=== PATIENT | male | born 1985 | race African-American/Black ===

== ENCOUNTER 2022-05-27 16:17 | Emergency (ER) | payer MEDICARE ==
[2022-05-27 18:24] VITALS: RESP 16
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
[2022-05-27 19:36] VITALS: BP 128/84; PULSE 80; TEMP 98.1
== END 2022-05-27 20:22 | disposition home or self-care (01) ==
LOC: EC 16:17
DX: R51.9 Headache, unspecified (principal); F12.90 Cannabis use, unspecified, uncomplicated
CPT/HCPCS: 70450; 99283

== ENCOUNTER → 2022-07-30 | Outpatient (CLI) | payer MEDICARE | END | disposition home or self-care (01) | LOC: LABWHC1 12:00 | PROVIDERS: ATTEND Urology | DX: E29.1 Testicular hypofunction (principal) | CPT/HCPCS: 36415; 84403 ==

== ENCOUNTER 2022-08-25 21:21 | Emergency (ER) | payer MEDICARE, OTHER ==
[2022-08-25 21:29] VITALS: RESP 18
--- NOTE | 2022-08-25 22:34 | XR ---
EXAMINATION TYPE: XR chest 2V DATE OF EXAM: 08/25/2022 COMPARISON: None INDICATION: Cough short of breath TECHNIQUE: Frontal and lateral views of the chest are obtained. FINDINGS: The heart size is normal. The pulmonary vasculature is normal. The lungs are clear. IMPRESSION: 1. No acute pulmonary process.
--- NOTE | 2022-08-25 23:43 | ED ---
General Adult HPI - General Chief complaint: Shortness of Breath Stated complaint: SOB Time Seen by Provider: 08/25/22 23:22 Source: patient, RN notes reviewed, old records reviewed Mode of arrival: ambulatory - History of Present Illness Initial comments: This is a nontoxic-appearing 37-year-old male who presents with complaints of cough, sore throat and shortness of breath on and off for one week. States that he thinks it's related to the poor air quality. He has been sleeping with his windows open because he doesn't have air conditioning. He has had increased yellow colored mucus production. Denies any fevers. No medical history. -: week(s) (1) Radiation: non-radiation Severity scale (1-10): 0 Consistency: intermittent Associated Symptoms: cough, shortness of breath, other (sore throat) - Related Data Allergies Allergy/AdvReac Type Severity Reaction Status Date / Time No Known Allergies Allergy Verified 08/25/22 21:29 Review of Systems ROS Statement: Those systems with pertinent positive or pertinent negative responses have been documented in the HPI. ROS Other: All systems not noted in ROS Statement are negative. Past Medical History Past Medical History: No Reported History Past Surgical History: No Surgical Hx Reported Past Psychological History: No Psychological Hx Reported Smoking Status: Never smoker Past Alcohol Use History: None Reported Past Drug Use History: Marijuana Course Vital Signs 08/25/22 08/25/22 08/25/22 21:26 23:44 23:51 Temperature 98.5 F 97.4 F L Pulse Rate 65 55 L Respiratory 18 18 18 Rate Blood Pressure 138/83 117/92 O2 Sat by Pulse 97 97 Oximetry Medical Decision Making - Medical Decision Making Was pt. sent in by a medical professional or institution (, PA, SINK CUTTER, urgent care, hospital, or half-way...) When possible be specific @ -No Did you speak to anyone other than the patient for history (EMS, parent, family, police, friend...)? What history was obtained from this source @ -No Did you review nursing and triage notes (agree or disagree)? Why? @ -I reviewed and agree with nursing and triage notes Were old charts reviewed (outside hosp., previous admission, EMS record, old EKG, old radiological studies, urgent care reports/EKG's, half-way records)? Report findings @ -No old charts were reviewed Differential Diagnosis (chest pain, altered mental status, abdominal pain women, abdominal pain men, vaginal bleeding, weakness, fever, dyspnea, syncope, headache, dizziness, GI bleed, back pain, seizure, CVA, palpatations, mental health, musculoskeletal)? @ -URI, strep pharyngitis, asthma, seasonal ALLERGIES this is not an all inclusive list EKG interpreted by me (3pts min.). @ -As above X-rays interpreted by me (1pt min.). @ - Chest x-ray interpreted by me shows no evidence of focal consolidation. Cardiac silhouette within normal size. Trachea midline. CT interpreted by me (1pt min.). @ -None done U/S interpreted by me (1pt. min.). @ -None done What testing was considered but not performed or refused? (CT, X-rays, U/S, labs)? Why? @ -Strep testing was considered however centor criteria low What meds were considered but not given or refused? Why? @ -Albuterol prescription was offered and patient declined Did you discuss the management of the patient with other professionals (professionals i.e. , PA, SINK CUTTER, lab, RT, psych nurse, geriatric social worker, silo tender, teacher, chief security officer, family independence case manager)? Give summary @ -No Was smoking cessation discussed for >3mins.? @ -No Was critical care preformed (if so, how long)? @ -No Were there social determinants of health that impacted care today? How? (Homelessness, low income, unemployed, alcoholism, drug addiction, transportation, low edu. Level, literacy, decrease access to med. care, long term, rehab)? @ -No Was there de-escalation of care discussed even if they declined (Discuss DNR or withdrawal of care, Hospice)? DNR status @ -No What co-morbidities impacted this encounter? (DM, HTN, Smoking, COPD, CAD, Cancer, CVA, ARF, Chemo, Hep., AIDS, mental health diagnosis, sleep apnea, morbid obesity)? @ -None Was patient admitted / discharged? Hospital course, mention meds given and route, prescriptions, significant lab abnormalities, going to OR and other pertinent info. @ -Discharged This is a nontoxic-appearing 37-year-old male who presents with complaints of cough, sore throat and shortness of breath on and off for one week. States that he thinks it's related to the poor air quality. He has been sleeping with his windows open because he doesn't have air conditioning. He has had increased ye llow colored mucus production. Denies any fevers. No medical history. Denies any chest pain. No history of asthma. States he is a nonsmoker. Vital signs are stable, lung sounds are clear to auscultation, oxygen saturation 97%. Chest x-ray interpreted by me shows no evidence of focal consolidation. Cardiac silhouette within normal size. Trachea midline. Radiologist interpretation no acute pulmonary process. Patient was offered an albuterol inhaler for intermittent shortness of breath and declined. Directed to follow up with his primary care doctor as needed. Increase his fluid intake. Use nasal saline and Mucinex [id number]. Return to the emergency room with any new or concerning symptoms concerning symptoms. He is agreeable to this plan of care. Case discussed with Dr. Astorga. Undiagnosed new problem with uncertain prognosis? @ -No Drug Therapy requiring intensive monitoring for toxicity (Heparin, Nitro, I nsulin, Cardizem)? @ -No Were any procedures done? @ -No Diagnosis/symptom? @ -URI Acute, or Chronic, or Acute on Chronic? @ -Acute Uncomplicated (without systemic symptoms) or Complicated (systemic symptoms)? @ -Uncomplicated Side effects of treatment? @ -No Exacerbation, Progression, or Severe Exacerbation? @ -No Poses a threat to life or bodily function? How? (Chest pain, [place], [place], pneumonia, PE, COPD, DKA, ARF, appy, cholecystitis, CVA, Diverticulitis, Homicidal, Suicidal, threat to staff... and all critical care pts) @ -No Disposition Clinical Impression: URI with cough and congestion Disposition: HOME SELF-CARE Condition: Good Instructions (If sedation given, give patient instructions): Upper Respiratory Infection (ED) Additional Instructions: Increase your fluid intake. Use Mucinex as needed to thin mucous. Avoid being outside for extended periods of time when poor air quality alerts are noted. Follow-up with the primary care doctor next week. Return to the emergency room with any new or concerning symptoms. Is patient prescribed a controlled substance at d/c from ED?: No Referrals: Rosario Dotson MD [Primary Care Provider] - 1-2 days Time of Disposition: 23:42
[2022-08-25 23:50] VITALS: BP 117/92; PULSE 55; TEMP 97.4
== END 2022-08-26 00:07 | disposition home or self-care (01) ==
LOC: EC 21:21
DX: J06.9 Acute upper respiratory infection, unspecified (principal); F12.90 Cannabis use, unspecified, uncomplicated
CPT/HCPCS: 71046; 99284

== ENCOUNTER → 2022-09-10 | Outpatient (CLI) | payer MEDICARE, OTHER ==
--- NOTE | 2022-09-10 10:41 | XR ---
EXAMINATION TYPE: XR thoracic spine complete DATE OF EXAM: 09/10/2022 COMPARISON: 08/25/2022 HISTORY: Pain TECHNIQUE: 3 views submitted FINDINGS: Alignment is anatomic. There is minimal loss of vertebral body height of a mid thoracic segment whic h appears chronic.. Vertebral body height and disc interspaces are maintained. Mild hypertrophic sp urring at multiple levels. IMPRESSION: 1. No acute abnormality. Mild hypertrophic changes. There is a very minimal loss of superior endplat e height which appears chronic of a mid to upper thoracic segment.
== END | disposition home or self-care (01) ==
LOC: RADXRMAIN 10:11
PROVIDERS: ATTEND Family Medicine
DX: M89.38 Hypertrophy of bone, other site (principal); M43.9 Deforming dorsopathy, unspecified
CPT/HCPCS: 72072

== ENCOUNTER 2022-09-26 15:30 | Emergency (ER) | payer MEDICARE, OTHER ==
[2022-09-26 15:51] VITALS: RESP 18
[2022-09-26] MEDS ORDERED: AZITHROMYCIN 500 MG TAB PO STA (16:25)
[2022-09-26] MEDS ORDERED: metroNIDAZOLE 500 MG TAB PO STA (16:25)
[2022-09-26] MEDS ORDERED: cefTRIAXone 250 MG VIAL IM STA (16:25)
--- NOTE | 2022-09-26 16:28 | ED ---
General Adult HPI - General Chief complaint: Recheck/Abnormal Lab/Rx Stated complaint: std testing Time Seen by Provider: 09/26/22 16:09 Source: patient Mode of arrival: ambulatory - History of Present Illness Initial comments: 37-year-old male presenting for STD testing. He states that 7 days ago after being sexually active he developed an itch to the groin. He denies any dis charge, dysuria, hematuria, rash, testicular pain or swelling. He is requesting testing and treatment. - Related Data Allergies Allergy/AdvReac Type Severity Reaction Status Date / Time No Known Allergies Allergy Verified 09/26/22 15:52 Review of Systems ROS Statement: Those systems with pertinent positive or pertinent negative responses have been documented in the HPI. ROS Other: All systems not noted in ROS Statement are negative. Past Medical History Past Medical History: No Reported History History of Any Multi-Drug Resistant Organisms: None Reported Past Surgical History: No Surgical Hx Reported Additional Past Surgical History / Comment(s): varicose veins sx Past Psychological History: No Psychological Hx Reported Smoking Status: Never smoker Past Alcohol Use History: None Reported Past Drug Use History: None Reported General Exam Limitations: no limitations General appearance: alert, in no apparent distress Head exam: Present: atraumatic, normocephalic, normal inspection Eye exam: Present: normal appearance, EOMI Neck exam: Present: normal inspection, full ROM Respiratory exam: Absent: respiratory distress Neurological exam: Present: alert, oriented X3, CN II-XII intact Psychiatric exam: Present: normal affect, normal mood Skin exam: Present: warm, dry, intact, normal color. Absent: rash Course Vital Signs 09/26/22 15:47 Temperature 98.5 F Pulse Rate 71 Respiratory 18 Rate Blood Pressure 112/69 O2 Sat by Pulse 99 Oximetry Medical Decision Making - Medical Decision Making Was pt. sent in by a medical professional or institution (, PA, PRINCIPAL ELECTRICAL ENGINEER, urgent care, hospital, or long-term...) When possible be specific @ -No Did you speak to anyone other than the patient for history (EMS, parent, family, police, friend...)? What history was obtained from this source @ -No Did you review nursing and triage notes (agree or disagree)? Why? @ -I reviewed and agree with nursing and triage notes Were old charts reviewed (outside hosp., previous admission, EMS record, old EKG, old radiological studies, urgent care reports/EKG's, long-term records)? Report findings @ -No old charts were reviewed Differential Diagnosis (chest pain, altered mental status, abdominal pain women, abdominal pain men, vaginal bleeding, weakness, fever, dyspnea, syncope, headache, dizziness, GI bleed, back pain, seizure, CVA, palpatations, mental health, musculoskeletal)? @ -not applicable EKG interpreted by me (3pts min.). @ -As above X-rays interpreted by me (1pt min.). @ -None done CT interpreted by me (1pt min.). @ -None done U/S interpreted by me (1pt. min.). @ -None done What testing was considered but not performed or refused? (CT, X-rays, U/S, labs)? Why? @ -None What meds were considered but not given or refused? Why? @ -None Did you discuss the management of the patient with other professionals (professionals i.e. , PA, PRINCIPAL ELECTRICAL ENGINEER, lab, RT, psych nurse, social contact worker, county surveyor, teacher, railroad police officer, mattress spring encaser)? Give summary @ -No Was smoking cessation discussed for >3mins.? @ -No Was critical care preformed (if so, how long)? @ -No Were there social determinants of health that impacted care today? How? (Homelessness, low income, unemployed, alcoholism, drug addiction, transportation, low edu. Level, literacy, decrease access to med. care, correction, rehab)? @ -No Was there de-escalation of care discussed even if they declined (Discuss DNR or withdrawal of care, Hospice)? DNR status @ -No What co-morbidities impacted this encounter? (DM, HTN, Smoking, COPD, CAD, Cancer, CVA, ARF, Chemo, Hep., AIDS, mental health diagnosis, sleep apnea, morbid obesity)? @ -None Was patient admitted / discharged? Hospital course, mention meds given and route, prescriptions, significant lab abnormalities, going to OR and other pertinent info. @ -37-year-old male presenting requesting STD testing. States that he has been having an itch to his groin and no other symptoms. He is requesting full panel STD testing. He would like to receive treatment today. He was receiving Rocephin, azithromycin, and metronidazole. Testing sent home patient will be contacted with results. Follow-up with PCP. Report back to ER with any new or worsening symptoms. Discussed return parameters and answered all questions. Patient conveyed verbal understanding and agreed to the plan. I discussed this case in detail with my attending Dr. Enrique Undiagnosed new problem with uncertain prognosis? @ -No Drug Therapy requiring intensive monitoring for toxicity (Heparin, Nitro, Insulin, Cardizem)? @ -No Were any procedures done? @ -No Diagnosis/symptom? @ -Encounter for STI screening Acute, or Chronic, or Acute on Chronic? @ -Acute Uncomplicated (without systemic symptoms) or Complicated (systemic symptoms)? @ -Uncomplicated Side effects of treatment? @ -No Exacerbation, Progression, or Severe Exacerbation? @ -No Poses a threat to life or bodily function? How? (Chest pain, [place], [place], pneumonia, PE, COPD, DKA, ARF, appy, cholecystitis, CVA, Diverticulitis, Homicidal, Suicidal, threat to staff... and all critical care pts) @ -No Disposition Clinical Impression: Encounter for assessment of STD exposure Disposition: HOME SELF-CARE Condition: Good Instructions (If sedation given, give patient instructions): Sexually Transmitted Diseases (ED), Male Condom Use (ED), Safe Sex Practices (ED) Additional Instructions: Follow-up with PCP. Report back to ER with any new or worsening symptoms. Is patient prescribed a controlled substance at d/c from ED?: No Referrals: Rosario Dotson MD [Primary Care Provider] - 1-2 days Time of Disposition: 16:28
[2022-09-26 18:21] VITALS: BP 191/82; PULSE 60; TEMP 98.6
[2022-09-26 18:41] LABS: Appearance,Urine Clear (Clear); Bilirubin,Urine Negative (Negative); Blood,Urine Negative (Negative); Color,Urine Yellow; Glucose,Urine (UA) Negative (Negative); Ketones,Urine Negative (Negative); Leukocyte Esterase,Urine Negative (Negative); Nitrite,Urine Negative (Negative); PH, Urine 5.5 (5.0-8.0); Protein,Urine Negative (Negative); Specific Gravity,Urine 1.024 (1.001-1.035); Urobilinogen,Urine <2.0 mg/dL (<2.0)
[2022-09-27 12:35] LABS: HIV 2 AB Non-Reactive (Non-Reactive); HIV AB P24 Non-Reactive (Non-Reactive); HIV P24 AG Non-Reactive (Non-Reactive)
[2022-09-28 04:50] LABS: Herpes simplex I and/or II IgM 0.44 INDEX (<=0.90); Herpes simplex IgG I Ab 32.3 (< or = 0.90); Herpes simplex IgG II Ab 0.43 (< or = 0.90)
== END 2022-09-26 18:21 | disposition home or self-care (01) ==
LOC: EC 15:30
DX: Z11.3 Encounter for screening for infections with a predominantly sexual mode of transmission (principal)
CPT/HCPCS: 36415; 86696; 86694; 86695; 81003; 87491; 87591; 86780; 87070; 87390; 99283; 96372; J0696

== ENCOUNTER 2022-10-02 15:55 | Emergency (ER) | payer MEDICARE, OTHER ==
[2022-10-02 16:03] VITALS: BP 123/79; PULSE 66; RESP 18; TEMP 97.7
[2022-10-02] MEDS ORDERED: CLINDAMYCIN 150 MG CAP PO STA (16:28)
--- NOTE | 2022-10-02 16:30 | ED ---
General Adult HPI - General Chief complaint: Extremity Injury, Upper Stated complaint: REACTION TO ANTIBIOTICS Time Seen by Provider: 10/02/22 16:16 Source: patient Mode of arrival: ambulatory Limitations: no limitations - History of Present Illness Initial comments: Patient is 37-year-old male who presents to the emergency department for left middle finger swelling. Patient reports swelling in his finger of the past couple days states he was draining pus out of it today. He does report clipping his nails earlier this week. Denies fever, chills, nausea, vomiting. Patient feels that his may be a reaction to an antibiotic injection he got last week. - Related Data Previous Rx's Medication Instructions Recorded Clindamycin [Cleocin] 450 mg PO Q8H #45 capsule 10/02/22 Allergies Allergy/AdvReac Type Severity Reaction Status Date / Time No Known Allergies Allergy Verified 10/02/22 16:03 Review of Systems ROS Statement: Those systems with pertinent positive or pertinent negative responses have been documented in the HPI. ROS Other: All systems not noted in ROS Statement are negative. Past Medical History Past Medical History: No Reported History History of Any Multi-Drug Resistant Organisms: None Reported Past Surgical History: No Surgical Hx Reported Additional Past Surgical History / Comment(s): varicose veins sx Past Psychological History: No Psychological Hx Reported Smoking Status: Never smoker Past Alcohol Use History: None Reported Past Drug Use History: None Reported General Exam Limitations: no limitations General appearance: alert Cardiovascular Exam: Present: regular rate, normal rhythm, normal heart sounds. Absent: systolic murmur, diastolic murmur, rubs, gallop, clicks GI/Abdominal exam: Present: soft, normal bowel sounds. Absent: distended, tenderness, guarding, rebound, rigid Extremities exam: Present: full ROM, normal capillary refill, other (hangnail left middle finger minimal erythema no swelling or drainage. Full range of motion. Neurovascularly intact) Neurological exam: Present: alert Psychiatric exam: Present: normal affect, normal mood Skin exam: Present: warm, dry, intact, normal color. Absent: rash Course Vital Signs 10/02/22 16:00 Temperature 97.7 F Pulse Rate 66 Respiratory 18 Rate Blood Pressure 123/79 O2 Sat by Pulse 97 Oximetry Medical Decision Making - Medical Decision Making Was pt. sent in by a medical professional or institution (, PA, RAIL MAINTENANCE WORKER, urgent care, hospital, or [place] [facility]...) When possible be specific @ -No Did you speak to anyone other than the patient for history (EMS, parent, family, police, friend...)? What history was obtained from this source @ -No Did you review nursing and triage notes (agree or disagree)? Why? @ -I reviewed and agree with nursing and triage notes Were old charts reviewed (outside hosp., previous admission, EMS record, old EKG, old radiological studies, urgent care reports/EKG's, [place] [facility] records)? Report findings @ -No old charts were reviewed Differential Diagnosis (chest pain, altered mental status, abdominal pain women, abdominal pain men, vaginal bleeding, weakness, fever, dyspnea, syncope, headache, dizziness, GI bleed, back pain, seizure, CVA, palpatations, mental health)? @ -abscess, cellulitis and paronychia. This list is not meant to be all- inclusive EKG interpreted by me (3pts min.). @ -As above X-rays interpreted by me (1pt min.). @ -None done CT interpreted by me (1pt min.). @ -None done U/S interpreted by me (1pt. min.). @ -None done What testing was considered but not performed or refused? (CT, X-rays, U/S, labs)? Why? @ -None What meds were considered but not given or refused? Why? @ -[None] Did you discuss the management of the patient with other professionals (professionals i.e. , PA, RAIL MAINTENANCE WORKER, lab, RT, psych nurse, social contact worker, hydrological technical officer, teacher, medical officer, shoe caser)? Give summary @ -[No] Was smoking cessation discussed for >3mins.? @ -[No] Was critical care preformed (if so, how long)? @ -[No] Were there social determinants of health that impacted care today? How? (Homelessness, low income, unemployed, alcoholism, drug addiction, tra nsportation, low edu. Level, literacy, decrease access to med. care, [facility], rehab)? @ -[No] Was there de-escalation of care discussed even if they declined (Discuss DNR or withdrawal of care, Hospice)? DNR status @ -[No] What co-morbidities impacted this encounter? (DM, HTN, Smoking, COPD, CAD, Cancer, CVA, ARF, Chemo, Hep., AIDS, mental health diagnosis, sleep apnea, morbid obesity)? @ -[None] Was patient admitted / discharged? Hospital course, mention meds given and route, prescriptions, significant lab abnormalities, going to OR and other pertinent info. @ -Patient has concern with swelling and drainage in left middle finger. This is not evident on physical exam however patient is adamant he has had drainage out of the finger all day. Patient does have a hangnail with minimal erythema will place patient on clindamycin for paronychia. Patient to follow-up with primary care provider Undiagnosed new problem with uncertain prognosis? @ -[No] Drug Therapy requiring intensive monitoring for toxicity (Heparin, Nitro, Insulin, Cardizem)? @ -[No] Were any procedures done? @ -[No] Diagnosis/symptom? @ -paronychia Acute, or Chronic, or Acute on Chronic? @ acute Uncomplicated (without systemic symptoms) or Complicated (systemic symptoms)? @ -uncomplicated Side effects of treatment? @ -[No] Exacerbation, Progression, or Severe Exacerbation? @ -[No] Poses a threat to life or bodily function? How? (Chest pain, [place], [place], pneumonia, PE, COPD, DKA, ARF, appy, cholecystitis, CVA, Diverticulitis, Homicidal, Suicidal, threat to staff... and all critical care pts) @ -No Dr. Osullivan is my attending Disposition Clinical Impression: Paronychia Disposition: HOME SELF-CARE Condition: Good Instructions (If sedation given, give patient instructions): Paronychia (ED) Additional Instructions: Take antibiotic as directed. This medication may cause diarrhea. Apply warm compress. Follow-up with primary care provider in one to 2 days. Return to the emergency department if you experience new, concerning, or worsening symptoms Prescriptions: Clindamycin [Cleocin] 450 mg PO Q8H #45 capsule Is patient prescribed a controlled substance at d/c from ED?: No Referrals: Rosario Dotson MD [Primary Care Provider] - 1-2 days
== END 2022-10-02 16:52 | disposition home or self-care (01) ==
LOC: EC 15:55
DX: L03.012 Cellulitis of left finger (principal)
CPT/HCPCS: 99283

== ENCOUNTER 2022-12-04 13:14 | Emergency (ER) | payer MEDICARE, OTHER ==
[2022-12-04 13:30] VITALS: BP 130/80; PULSE 70; RESP 20; TEMP 97.6
--- NOTE | 2022-12-04 14:41 | ED ---
General Adult HPI - General Chief complaint: ENT Stated complaint: ear infection Time Seen by Provider: 12/04/22 14:20 Source: patient, RN notes reviewed, old records reviewed Mode of arrival: ambulatory Limitations: no limitations - History of Present Illness Initial comments: Patient is a 37-year-old male who presents emergency Department with itching to bilateral ear canals. Has been cleaning them out more with eardrops as well as Q-tips. States he seemed irritated, itchy, but no hieu pain. No discharge. No difficulty with hearing. No sore throat. No fevers. No rhinorrhea or congestion. No other acute complaints at this time. Presents for further evaluation at this time. - Related Data Previous Rx's Medication Instructions Recorded Clindamycin [Cleocin] 450 mg PO Q8H #45 capsule 10/02/22 Ofloxacin 0.3% Otic Soln [Floxin 5 drops BOTH EARS BID #10 ml 12/04/22 0.3% Otic Soln] Allergies Allergy/AdvReac Type Severity Reaction Status Date / Time No Known Allergies Allergy Verified 10/02/22 16:03 Review of Systems ROS Statement: Those systems with pertinent positive or pertinent negative responses have been documented in the HPI. Review of Systems: CONST: Denies fever EYES: Denies blurry vision ENT: Endorses ear pain C/V: Denies Chest pain RESP: Denies shortness of breath GI: Denies abdominal pain : Denies dysuria SKIN: Denies rash. MSK: Denies joint pain. NEURO: Denies headache ROS Other: All systems not noted in ROS Statement are negative. Past Medical History Past Medical History: No Reported History History of Any Multi-Drug Resistant Organisms: None Reported Past Surgical History: No Surgical Hx Reported Additional Past Surgical History / Comment(s): varicose veins sx Past Psychological History: No Psychological Hx Reported Smoking Status: Never smoker Past Alcohol Use History: None Reported Past Drug Use History: None Reported General Exam - General Exam Comments Initial Comments: General: Appears in no acute distress. HEAD: Normal with no signs of head trauma. EYES: EOMI. ENT: Hearing grossly intact. Bilateral tympanic membranes within acceptable limits. Bilateral ear canals appear erythematous and irritated. No obvious drainage. Posterior oropharynx within acceptable limits. RESPIRATORY: No respiratory distress. C/V: Regular rate and rhythm. ABD: Abdomen is nondistended. EXT: No obvious deformity. SKIN: No rashes or lesions observed on exposed skin. NEURO: Alert and oriented. Limitations: no limitations Course Vital Signs 12/04/22 13:18 Temperature 97.6 F Pulse Rate 70 Respiratory 20 Rate Blood Pressure 130/80 O2 Sat by Pulse 98 Oximetry Medical Decision Making - Medical Decision Making Was pt. sent in by a medical professional or institution ([facility], SLIVER HANDLER, urgent care, hospital, or retirement...) When possible be specific @ -No Did you speak to anyone other than the patient for history (EMS, parent, family, police, friend...)? What history was obtained from this source @ -No Did you review nursing and triage notes (agree or disagree)? Why? @ -I reviewed and agree with nursing and triage notes Were old charts reviewed (outside hosp., previous admission, EMS record, old EKG, old radiological studies, urgent care reports/EKG's, retirement records)? Report findings @ -No old charts were reviewed Differential Diagnosis (chest pain, altered mental status, abdominal pain women, abdominal pain men, vaginal bleeding, weakness, fever, dyspnea, syncope, headache, dizziness, GI bleed, back pain, seizure, CVA, palpatations, mental health, musculoskeletal)? @ -Otitis media, otitis externa, tympanic membrane rupture, ear canal irritation. This list is not all-inclusive. EKG interpreted by me (3pts min.). @ -None done X-rays interpreted by me (1pt min.). @ -None done CT interpreted by me (1pt min.). @ -None done U/S interpreted by me (1pt. min.). @ -None done What testing was considered but not performed or refused? (CT, X-rays, U/S, labs)? Why? @ -None What meds were considered but not given or refused? Why? @ -None Did you discuss the management of the patient with other professionals (professionals i.e. [facility], SLIVER HANDLER, lab, RT, psych nurse, renal social worker, weekend anchor, teacher, logistics supply officer, case consultant)? Give summary @ -No Was smoking cessation discussed for >3mins.? @ -No Was critical care preformed (if so, how long)? @ -No Were there social determinants of health that impacted care today? How? (Homelessness, low income, unemployed, alcoholism, drug addiction, transportation, low edu. Level, literacy, decrease access to med. care, intermediate, rehab)? @ -No Was there de-escalation of care discussed even if they declined (Discuss DNR or withdrawal of care, Hospice)? DNR status @ -No What co-morbidities impacted this encounter? (DM, HTN, Smoking, COPD, CAD, Cancer, CVA, ARF, Chemo, Hep., AIDS, mental health diagnosis, sleep apnea, morbid obesity)? @ -None Was patient admitted / discharged? Hospital course, mention meds given and route, prescriptions, significant lab abnormalities, going to OR and other pertinent info. @ -Based on the patient's presentation and physical exam, I'm concerned for auditory canal irritation. No evidence of otitis media or otitis externa at this time. Exam otherwise unremarkable. However I did discuss with him, that we will empirically treat him for otitis externa with otic drops. He was in agreement with this plan. Recommended he stop using Q-tips and attempt not to insert anything in his ear canal until they feel improved. He was in agreement this plan. Strict return precautions discussed. Discharge at this time. He'll be given ENT follow-up. I will provide the patient with a prescription for ofloxacin otic drops. I instructed the patient to follow up with their PCP in the next 1-3 days. I explained that the patient should return to the emergency department if they experience any worsening symptoms. Strict return precautions were discussed with the patient. The patient expressed understanding of these instructions. I answered all questions that the patient had. The patient was discharged home in good condition with their prescriptions and follow up information. Undiagnosed new problem with uncertain prognosis? @ -No Drug Therapy requiring intensive monitoring for toxicity (Heparin, Nitro, Insulin, Cardizem)? @ -No Were any procedures done? @ -No Diagnosis/symptom? @ -Irritation of the external auditory canal Acute, or Chronic, or Acute on Chronic? @ -Acute Uncomplicated (without systemic symptoms) or Complicated (systemic symptoms)? @ -Uncomplicated Side effects of treatment? @ -No Exacerbation, Progression, or Severe Exacerbation? @ -No Poses a threat to life or bodily function? How? (Chest pain, [place], [place], pneumonia, PE, COPD, DKA, ARF, appy, cholecystitis, CVA, Diverticulitis, Homicidal, Suicidal, threat to staff... and all critical care pts) @ -No Disposition Clinical Impression: Irritation of external auditory canal Disposition: HOME SELF-CARE Condition: Good Instructions (If sedation given, give patient instructions): Earache (ED) Prescriptions: Ofloxacin 0.3% Otic Soln [Floxin 0.3% Otic Soln] 5 drops BOTH EARS BID #10 ml Is patient prescribed a controlled substance at d/c from ED?: No Referrals: Rosario Dotson MD [Primary Care Provider] - 1-2 days Luis Felipe Warren MD [STAFF PHYSICIAN] - 1-2 days Time of Disposition: 14:40
== END 2022-12-04 14:46 | disposition home or self-care (01) ==
LOC: EC 13:14
DX: H61.893 Other specified disorders of external ear, bilateral (principal)
CPT/HCPCS: 99283

== ENCOUNTER 2024-08-18 22:31 | Emergency (ER) | payer MEDICARE, OTHER ==
[2024-08-18 22:49] VITALS: BP 120/72; PULSE 77; RESP 16; TEMP 98.3
--- NOTE | 2024-08-18 22:52 | ED ---
Male Urogenital HPI - General Chief complaint: Urogenital Stated complaint: urogential congestion Time Seen by Provider: 08/18/24 22:50 Source: patient, RN notes reviewed, old records reviewed Mode of arrival: ambulatory Limitations: no limitations - History of Present Illness Initial comments: This is a 39-year-old male to the ER for evaluation patient presents today requesting STI testing. Patient states he has multiple high risk exposures for STD STI, HIV HSV with dysuria. Patient has had high risk exposure in the past with negative STI testing MD Complaint: dysuria, other (Fevers chills weakness) -: days(s) Location: penis Radiation: none Severity: mild Severity scale (1-10): 0 Quality: aching Consistency: constant Improves with: none Worsens with: none Reports: denies other symptoms - Related Data Previous Rx's Medication Instructions Recorded Clindamycin [Cleocin] 450 mg PO Q8H #45 capsule 10/02/22 Ofloxacin 0.3% Otic Soln [Floxin 5 drops BOTH EARS BID #10 ml 12/04/22 0.3% Otic Soln] Allergies Allergy/AdvReac Type Severity Reaction Status Date / Time No Known Allergies Allergy Verified 08/18/24 22:46 Review of Systems ROS Statement: Those systems with pertinent positive or pertinent negative responses have been documented in the HPI. ROS Other: All systems not noted in ROS Statement are negative. Past Medical History Past Medical History: No Reported History History of Any Multi-Drug Resistant Organisms: None Reported Past Surgical History: No Surgical Hx Reported Additional Past Surgical History / Comment(s): varicose veins sx Past Psychological History: No Psychological Hx Reported Smoking Status: Never smoker Past Alcohol Use History: None Reported Past Drug Use History: None Reported General Exam Limitations: no limitations General appearance: alert, in no apparent distress Head exam: Present: atraumatic, normocephalic, normal inspection Eye exam: Present: normal appearance, PERRL, EOMI. Absent: scleral icterus, conjunctival injection, periorbital swelling ENT exam: Present: normal exam, mucous membranes moist Neck exam: Present: normal inspection. Absent: tenderness, meningismus, lymphadenopathy Respiratory exam: Present: normal lung sounds bilaterally. Absent: respiratory distress, wheezes, rales, rhonchi, stridor Cardiovascular Exam: Present: regular rate, normal rhythm, normal heart sounds. Absent: systolic murmur, diastolic murmur, rubs, gallop, clicks GI/Abdominal exam: Present: soft, normal bowel sounds. Absent: distended, tenderness, guarding, rebound, rigid Extremities exam: Present: normal inspection, full ROM, normal capillary refill. Absent: tenderness, pedal edema, joint swelling, calf tenderness Back exam: Present: normal inspection Neurological exam: Present: alert, oriented X3, CN II-XII intact Psychiatric exam: Present: normal affect, normal mood Skin exam: Present: warm, dry, intact, normal color. Absent: rash Course Vital Signs 08/18/24 22:46 Temperature 98.3 F Pulse Rate 77 Respiratory 16 Rate Blood Pressure 120/72 O2 Sat by Pulse 99 Oximetry - Reevaluation(s) Reevaluation #1: 08/18/24 23:21 Medical records reviewed Reevaluation #2: 08/18/24 23:21 Patient is relatively asymptomatic, concern and anxiety Reevaluation #3: 08/18/24 23:21 Patient informed of results questions answered Reevaluation #4: Was pt. sent in by a medical professional or institution (, PA, PLATER APPRENTICE, urgent care, hospital, or custodial...) When possible be specific @ -no Did you speak to anyone other than the patient for history (EMS, parent, family, police, friend...)? What history was obtained from this source @ -no Did you review nursing and triage notes (agree or disagree)? Why? @ -agree Are old charts reviewed (outside hosp., previous admission, EMS record, old EKG, old radiological studies, urgent care reports/EKG's, custodial records)? Report findings @ -yes Differential Diagnosis (chest pain, altered mental status, abdominal pain women, abdominal pain men, vaginal bleeding, weakness, fever, dyspnea, syncope, headache, dizziness, GI bleed, back pain, seizure, CVA, palpatations, mental health, musculoskeletal)? @ -prior EKG interpreted by me (3pts min.). @ -yes X-rays interpreted by me (1pt min.). @ -yes negative for acute disease CT interpreted by me (1pt min.). @ -no U/S interpreted by me (1pt. min.). @ -no What testing was considered but not performed or refused? (CT, X-rays, U/S, labs)? Why? @ -none What meds were considered but not given or refused? Why? @ -none Did you discuss the management of the patient with other professionals (professionals i.e. , PA, PLATER APPRENTICE, lab, RT, psych nurse, web content & social media manager, grades 1 6 tutor, teacher, information security officer, shelter case manager)? Give summary @ -no Was smoking cessation discussed for >3mins.? @ -no Was critical care preformed (if so, how long)? @ -no Were there social determinants of health that impacted care today? How? (Homelessness, low income, unemployed, alcoholism, drug addiction, transportation, low edu. Level, literacy, decrease access to med. care, detention, rehab)? @ -none Was there de-escalation of care discussed even if they declined (Discuss DNR or withdrawal of care, Hospice)? DNR status @ -no What co-morbidities impacted this encounter? (DM, HTN, Smoking, COPD, CAD, Cancer, CVA, ARF, Chemo, Hep., AIDS, mental health diagnosis, sleep apnea, morbid obesity)? @ -none Was patient admitted / discharged? Hospital course, mention meds given and route, prescriptions, significant lab abnormalities, going to OR and other pertinent info. @ - Undiagnosed new problem with uncertain prognosis? @ -no Drug Therapy requiring intensive monitoring for toxicity (Heparin, Nitro, Insulin, Cardizem)? @ -no Were any procedures done? @ -no Diagnosis/symptom? @ - Acute, or Chronic, or Acute on Chronic? @ -Acute Uncomplicated (without systemic symptoms) or Complicated (systemic symptoms)? @ -Complicated Side effects of treatment? @ -no Exacerbation, Progression, or Severe Exacerbation? @ -exacerbation Poses a threat to life or bodily function? How? (Chest pain, [place], [place], pneumonia, PE, COPD, DKA, ARF, appy, cholecystitis, CVA, Diverticulitis, Homicidal, Suicidal, threat to staff... and all critical care pts) @ -yes Medical Decision Making - Medical Decision Making 39 male to ER for STI STD testing, patient believes he does have however sexual activity with exposure. Disposition Clinical Impression: Possible exposure to STI Disposition: HOME SELF-CARE Instructions (If sedation given, give patient instructions): Sexually Transmitted Diseases (ED), Safe Sex Practices (ED) Referrals: Rosario Dotson MD [Primary Care Provider] - 1-2 days Time of Disposition: 23:30
[2024-08-18 23:31] LABS: Bilirubin,Urine Negative (Negative); Blood,Urine Negative (Negative); Color,Urine Light Yellow; Glucose,Urine (UA) Negative (Negative); Ketones,Urine Negative (Negative); Leukocyte Esterase,Urine Negative (Negative); Nitrite,Urine Negative (Negative); PH, Urine 5.5 (5.0-8.0); Protein,Urine Negative (Negative); Specific Gravity,Urine 1.027 (1.001-1.035); Urobilinogen,Urine <2.0 mg/dL (<2.0)
[2024-08-18] MEDS: AZITHROMYCIN 500 MG TAB PO STA (23:38)
[2024-08-18] MEDS: cefTRIAXone IN SWFI 1,000 MG/10 ML SYRINGE IVP STA (23:39)
[2024-08-19 09:15] LABS: Hepatitis A Antibody IgM Nonreactive (Nonreactive); Hepatitis B Surface Antigen Nonreactive (Nonreactive); Hepatitis C IgG Antibody Nonreactive (Nonreactive)
[2024-08-20 14:44] LABS: C. trachomatis,PCR Negative (Negative); N. gonorrhoeae,PCR Negative (Negative)
[2024-08-20 20:01] LABS: HIV 2 AB Non-Reactive (Non-Reactive); HIV AB P24 Non-Reactive (Non-Reactive); HIV P24 AG Non-Reactive (Non-Reactive)
== END 2024-08-18 23:51 | disposition home or self-care (01) ==
LOC: EC 22:31
DX: Z11.3 Encounter for screening for infections with a predominantly sexual mode of transmission (principal)
CPT/HCPCS: 36415; 80074; 81003; 87491; 87591; 87390; 99283; 96374; J0696